=== PATIENT | female | born 1980 | race American Indian/Alaskan Native ===

== ENCOUNTER 2020-05-13 14:59 | Emergency (ER) | payer SELFPAY ==
[2020-05-13 15:33] VITALS: BP 145/98
--- NOTE | 2020-05-13 17:19 | Emergency Department Report ---
Chief Complaint: Back Pain/Injury Stated Complaint: SHOULDER PAIN Time Seen by Provider: 05/13/20 17:14 - HPI History of Present Illness: The patient was evaluated in the emergency department for symptoms described in the history of present illness. He/she was evaluated in the context of the global COVID-19 pandemic, which necessitated consideration that the patient might be at risk for infection with the virus that causes COVID-19. Institutional protocols and algorithms that pertain to the evaluation of patients at risk for COVID-19 are in a state of rapid change based on information released by regulatory bodies including the CDC and federal and state organizations. These policies and algorithms were followed during the patient's care in the emergency department. Please note that these policies, procedures and recommendations changed on a rapid basis. 40-year-old -[place] female presents to the emergency room for arthritis flareup. Patient reports that she has a regimen of medications that she takes that helps with her arthritis flareup. She bases coming in for a work excuse as she states her job would not let her return back to work since she needed to go home today secondary to pain. Patient denies any recent trauma. - Exam Vital Signs: Vital Signs 05/13/20 15:16 Temperature 97.8 F Pulse Rate 99 H Respiratory 18 Rate Blood Pressure 145/98 O2 Sat by Pulse 98 Oximetry MSE screening note: Focused history and physical exam performed. Due to findings the following was ordered: 40-year-old -[place] female presents to the emergency room for arthritis flareup. Patient reports that she has a regimen of medications that she takes that helps with her arthritis flareup. She bases coming in for a work excuse as she states her job would not let her return back to work since she needed to go home today secondary to pain. Patient denies any recent trauma. Discussed with patient she needs to follow-up with a primary care provider and a health information assistant. She can continue taking her [id number]-[id number] pain medication. ED Disposition for MSE Disposition: Z- MED SCREENING EXAM-LEFT Is pt being admited?: No Does the pt Need Aspirin: No Condition: Stable Additional Instructions: Please follow-up with a primary care provider and a health information assistant. Tinea with [id number] ibuprofen, naproxen or Tylenol. Referrals: THAIS WALL MD [Staff Physician] - 3-5 Days Forms: Work/School Release Form(ED)
== END 2020-05-13 17:38 | disposition left against medical advice (07) ==
LOC: ED 14:59
DX: M25.511 Pain in right shoulder (principal); Z53.21 Procedure and treatment not carried out due to patient leaving prior to being seen by health care provider